=== PATIENT | male | born 1985 | race African-American/Black ===

== ENCOUNTER 2016-04-24 08:45 | Outpatient (RCR) | payer OTHER ==
[~2016-04-24 08:45] MED LIST: GABA300C3 PO; NICO7PA TD
== END 2016-04-25 | disposition home or self-care (01) ==
LOC: M OUTALCOH 08:45
PROVIDERS: ATTEND Psychiatry & Neurology Psychiatry
DX: F10.20 Alcohol dependence, uncomplicated (principal); Z72.0 Tobacco use

== ENCOUNTER 2016-05-01 08:45 | Outpatient (RCR) | payer OTHER, SELFPAY ==
[~2016-05-01 08:45] MED LIST changes: +GABA-282 PO; -GABA300C3 PO
== END 2016-05-23 ==
LOC: M OUTALCOH 08:45
PROVIDERS: ATTEND Psychiatry & Neurology Psychiatry
DX: F10.20 Alcohol dependence, uncomplicated (principal); Z72.0 Tobacco use